=== PATIENT | female | born 1980 | race Caucasian/White ===

== ENCOUNTER 2023-10-01 09:41 | Emergency (ER) | payer BC ==
--- NOTE | 2023-10-01 10:47 | RAD REPORT ---
EXAM DESCRIPTION: CT - CTHCSPWOC - 10/01/2023 10:31 am CLINICAL HISTORY: Trauma, head and neck injury. head/facial injury COMPARISON: Facial Bones W/ Mpr dated 10/01/2023 TECHNIQUE: Axial 5 mm thick images of the head were obtained. Axial 2 mm thick images of the cervical spine were obtained with sagittal and coronal reconstruction images generated and reviewed. All CT scans are performed using dose optimization technique as appropriate and may include automated exposure control or mA/KV adjustment according to patient size. FINDINGS: CT HEAD WITHOUT CONTRAST: No acute hemorrhage, hydrocephalus or extra-axial collection is identified.Benign corpus callosum lip kelly noted.No areas of brain edema or midline shift. The paranasal sinuses and mastoids are clear.The calvarium is intact. CT CERVICAL SPINE WITHOUT CONTRAST: No fracture or subluxation.No prevertebral soft tissues swelling is identified. IMPRESSION: No acute intracranial or cervical spine findings.
--- NOTE | 2023-10-01 10:49 | RAD REPORT ---
EXAM DESCRIPTION: CT - CTFB CLINICAL HISTORY: L jaw injury Trauma, jaw pain COMPARISON: No comparisons TECHNIQUE: Axial 2 mm thick images of the face were obtained with sagittal and coronal reconstructio n images. All CT scans are performed using dose optimization technique as appropriate and may include automated exposure control or mA/KV adjustment according to patient size. FINDINGS: No acute facial bone fracture is seen.The mandible is intact. The globes and orbital contents are grossly unremarkable.The paranasal sinuses and mastoids are clear . IMPRESSION: Negative for facial bone fracture.
[2023-10-01] MEDS ORDERED: DIAZEPAM 10 MG/2 ML INJ SYRINGE ONE (11:14)
[2023-10-01] MEDS ORDERED: IBUPROFEN 400 MG TAB ONE (11:16)
[2023-10-01] MEDS ORDERED: ACETAMINOPHEN 500 MG TAB ONE (11:16)
--- NOTE | 2023-10-01 11:22 | ER ---
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 Patient reports LOC but denies taking any blood thinners. Patient reports pain to her left jaw and left knee. Care prior to arrival: None. Mechanism of Injury: Fall from standing position. Trauma event details: Injury occurred in the [facility], Injury occurred: at home. Injury occurred: October 01, 2023. Activity prior to arrival: None. 10:18 Acuity: RADHA 2 ap3 10:18 Method Of Arrival: Ambulatory ap3 10:21 Coronavirus screen: At this time, the client does not indicate any symptoms associated ap3 with coronavirus-19. Ebola Screen: No symptoms or risks identified at this time. Initial Sepsis Screen: Does the patient meet any 2 criteria? HR > 90 bpm. Does the patient have a suspected source of infection? No. Patient's initial sepsis screen is negative. Risk Assessment: Do you want to hurt yourself or someone else? Patient reports no desire to harm self or others. Onset of symptoms was October 01, 2023. Triage Assessment: 10:23 General: Appears uncomfortable, Behavior is calm. Pain: Complains of pain in left jaw. ap3 Neuro: Level of Consciousness is awake, alert, obeys commands, Oriented to person, place, time, situation. Cardiovascular: Patient's skin is warm and dry. Respiratory: Airway is patent Respiratory effort is even, unlabored. 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 - Infectious Disease History:: Denies. - Social history:: Smoking status: Patient reports the use of cigarette tobacco products, smokes one pack cigarettes per day. Primary Survey: 10:24 NO uncontrolled hemorrhage observed. Breathing/Chest: Spontaneous respiratory effort, ap3 equal unlabored respirations, breath sounds clear bilaterally, regular pattern, symmetrical chest rise and fall. Circulation: No external hemorrhage present. Regular and strong central pulse, skin warm/dry/normal color. Disability Client is alert. Exposure/Environment: A warming method has been applied: A warm blanket has been provided to the patient. Assessment: 10:18 General: Appears uncomfortable, Behavior is calm, cooperative. Pain: Complains of pain ap3 in left jaw Pain currently is 10 out of 10 on a pain scale. Pain began suddenly. Neuro: Level of Consciousness is awake, alert, obeys commands, Oriented to person, place, time, situation. Neuro: Reports LOC. Respiratory: Airway is patent Respiratory effort is even, unlabored, Respiratory pattern is regular, symmetrical. Vital Signs: 10:21 BP 150 / 92; Pulse 97; Resp 17; Temp 97.7; Pulse Ox 98% ; Weight 88 kg; Pain 10/10; ap3 10:21 Pain Scale: Adult ap3 [place] Coma Score: 10:24 Eye Response: spontaneous(4). Motor Response: obeys commands(6). Verbal Response: ap3 oriented(5). Total: 15. Trauma Score (Adult): 10:25 Eye Response: spontaneous(1); Verbal Response: oriented(1); Motor Response: obeys ap3 commands(2); Systolic BP: > 89 mm Hg(4); Respiratory Rate: 10 to 29 per min(4); [place] Score: 15; Trauma Score: 12 ED Course: 09:43 Patient arrived in ED. mr 09:45 Anatoly Daley MD is Attending Physician. ec2 10:20 Triage completed. ap3 10:25 Arm band placed on right wrist. ap3 10:25 O2 via room air. ap3 10:30 CT Head C Spine In Process Unspecified. EDMS 10:30 Facial Bones W/O Con CT In Process Unspecified. EDMS 11:09 Linda Hughes, RN is Primary Nurse. iw Administered Medications: 11: Drug: Ibuprofen PO 800 mg PO once Route: PO; iw 11: Drug: Diazepam IM 5 mg IM once Route: IM; Site: right deltoid; iw : Drug: Acetaminophen PO 1000 mg PO once Route: PO; iw 11: Drug: diphenhydrAMINE PO 50 mg PO once Route: PO; iw Outcome: 11:21 Discharge ordered by . ec2 11:59 Patient left the ED. iw Signatures: Dispatcher [employer] EDMO Ginny Saba, Reg Reg Linda Cordova RN RN iw Prokisch, Amanda, RN RN ap3 Anatoly Daley MD MD ec2
--- NOTE | 2023-10-01 11:22 | EDPHYS ---
Physician Documentation [facility] Name: Lora Armijo Age: 43 yrs Sex: Female : 1980 Arrival Date: 10/01/2023 Time: 09:41 Bed 11 Private MD: ED Physician Anatoly Daley HPI: 09/30 10:21 This 43 yrs old Female presents to ER via Ambulatory with complaints of Fall Injury, ec2 Jaw Injury. 10:21 Patient arrives today for evaluation of a facial injury. States that she tripped and ec2 fell and injured herself. States that she struck the left side of her face. No blood thinners, no neck pain. Complaining of head pain as well as left jaw pain.. 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 - Infectious Disease History:: Denies. - Social history:: Smoking status: Patient reports the use of cigarette tobacco products, smokes one pack cigarettes per day. ROS: 10:21 Constitutional: as per hpi ec2 Exam: 10:21 Constitutional: GEN: No acute distress HEENT: -Head: Left jaw TTP, no deformities or ec2 crepitus appreciated. -Eyes: EOMI CV: regular rate LUNGS: no respiratory distress ABD: non-tender SKIN: no wounds appreciated MSK: No C/T/L spine deformities RUE w/o bony deformity LUE w/o bony deformity RLE w/o bony deformity LLE w/o bony deformity NEURO: moves all extremities equally, GCS 15 (E4, V5, M6) Vital Signs: 10:21 BP 150 / 92; Pulse 97; Resp 17; Temp 97.7; Pulse Ox 98% ; Weight 88 kg; Pain 10/10; ap3 10:21 Pain Scale: Adult ap3 [place] Coma Score: 10:24 Eye Response: spontaneous(4). Motor Response: obeys commands(6). Verbal Response: ap3 oriented(5). Total: 15. Trauma Score (Adult): 10:25 Eye Response: spontaneous(1); Verbal Response: oriented(1); Motor Response: obeys ap3 commands(2); Systolic BP: > 89 mm Hg(4); Respiratory Rate: 10 to 29 per min(4); [place] Score: 15; Trauma Score: 12 MDM: 10:17 Patient medically screened. ec2 10:21 Data reviewed: vital signs. ED course: Patient arrives today for evaluation of left jaw ec2 pain. Examination remarkable for well-appearing nontoxic dividual is otherwise in no acute distress with a reassuring examination we will obtain CT imaging to evaluate for bony fracture.. 11:21 ED course: CT head and C-spine as well as CT facial bones showed no fractures. Suspect ec2 contusion causing her pain. Will discharge home with prescription for Robaxin. Return precautions given. . 09/30 10:21 Order name: CT Head C Spine; Complete Time: 11:20 ec2 09/30 10:21 Order name: Facial Bones W/O Con CT; Complete Time: 11:20 ec2 Administered Medications: 11:22 Drug: Ibuprofen PO 800 mg PO once Route: PO; iw 11:23 Drug: Diazepam IM 5 mg IM once Route: IM; Site: right deltoid; iw 11:23 Drug: Acetaminophen PO 1000 mg PO once Route: PO; iw 11:57 Drug: diphenhydrAMINE PO 50 mg PO once Route: PO; iw Disposition Summary: 10/01/23 11:21 Discharge Ordered Notes: Location: Home ec2 Condition: Stable ec2 Diagnosis - Jaw pain ec2 Followup: ec2 - With: Private Physician - When: - Reason: Re-evaluation by your physician Discharge Instructions: - Discharge Summary Sheet ec2 Forms: - Medication Reconciliation Form ec2 - Thank You Letter ec2 - Antibiotic Education ec2 - Prescription Opioid Use ec2 - Patient Portal Instructions ec2 - Leadership Thank You Letter ec2 Prescriptions: - methocarbamol 500 mg Oral tablet - take 2 tablets ORAL route 4 times per day; 30 tablet; Refills: 0, Product ec2 Selection Permitted Signatures: Dispatcher [employer] Linda Mendoza RN Marleen Mohamud RN RN ap3 Anatoly Daley MD MD ec2 Corrections: (The following items were deleted from the chart) 10: Head C Spine MPR Wo Con+CT.RAD.BRZ ordered. EDMS EDMS : Facial Bones W/ MPR+CT.RAD.BRZ ordered. EDMS EDMS
[2023-10-01] MEDS ORDERED: DIPHENHYDRAMINE 25 MG TAB/CAP ONE (11:53)
[2023-10-01 19:17] VITALS: BP 150/92; TEMP 97.7; O2SAT 98
== END 2023-10-01 11:59 | disposition home or self-care (01) ==
LOC: ER 09:41
DX: R68.84 Jaw pain (principal); R51.9 Headache, unspecified; F17.210 Nicotine dependence, cigarettes, uncomplicated; Z88.5 Allergy status to narcotic agent
CPT/HCPCS: 70450; 72125; 70486; 76377; J3360